=== PATIENT | male | born 1985 | race Caucasian/White ===

== ENCOUNTER → 2024-04-12 11:07 | Outpatient (REF) | payer OTHER, SELFPAY | LOC: RAD 11:07 | PROVIDERS: ATTENDING PHYSICIAN Nurse Practitioner; FAMILY PHYSICIAN Hospitalist | DX: R10.32 Left lower quadrant pain (principal) | CPT/HCPCS: 72100; 73502 ==

== ENCOUNTER → 2024-05-10 06:55 | Outpatient (REF) | payer BC, SELFPAY | LOC: RAD 06:55 | PROVIDERS: ATTENDING PHYSICIAN Nurse Practitioner; FAMILY PHYSICIAN Hospitalist | DX: N28.1 Cyst of kidney, acquired (principal) | CPT/HCPCS: 76770 ==